=== PATIENT | male | born 1940 | race Caucasian/White ===

== ENCOUNTER 2020-11-12 19:49 | Emergency (ER) | payer OTHER ==
[~2020-11-12] VITALS: Ht 157.5 cm; Wt 63.5 kg
[2020-11-12 20:07] VITALS: BP 113/63
--- NOTE | 2020-11-12 20:20 | NUR ---
PATIENT PRESENTS TO ED VIA W/C WITH C/O ELEVATED BLOOD SUGAR.WAS SENT HERE BY PMD . DENIES N/V/D; SKIN IS PINK/WARM/DRY; AAOX4 WITH EVEN AND STEADY LUNGS CLEAR BL; HR EVEN AND REGULAR; PT DENIES ANY FEVER, CP, SOB, OR COUGH AT THIS TIME; PATIENT STATES PAIN OF 0/10 AT THIS TIME; VSS; PATIENT POSITIONED FOR COMFORT; HOB ELEVATED; BEDRAILS UP X2; BED DOWN. ER MD MADE AWARE OF PT STATUS.
--- NOTE | 2020-11-12 20:37 | NUR ---
DR. ALEMAN AT BEDSIDE FOR EXAM
[2020-11-12] MEDS: IBUPROFEN 400 MG TAB PO ONE (20:55)
--- NOTE | 2020-11-12 22:00 | NUR ---
PER WYATT ALEMAN PT IS OK TO HAVE PO FLUIDS AND IF PT IS UNABLE TO VOID STRAIGHT CATH PROCEDURE IS OK WITH PT CONSENT.
[2020-11-12 22:47] VITALS: BP 113/63
--- NOTE | 2020-11-12 22:47 | NUR ---
Patient discharged with v/s stable. Written and verbal after care instructions given and explained. Patient verbalized understanding. Wheel Chair Assisted with by caregiver (DAUGHTER). All questions addressed prior to discharge. Advised to follow up with PMD.
== END 2020-11-12 22:47 | disposition home or self-care (01) ==
LOC: MED 19:49
DX: E11.65 Type 2 diabetes mellitus with hyperglycemia (principal)
CPT/HCPCS: 81002; 99282